=== PATIENT | female | born 1975 | race Caucasian/White ===

== ENCOUNTER 2017-03-29 00:09 | Emergency (ER) | payer OTHER ==
[2017-03-29] MEDS ORDERED: HYDROmorphone HCL 1 MG/ML SYR ONE ×2 (00:33→01:05)
[2017-03-29] MEDS ORDERED: ONDANSETRON HCL 4 MG/2 ML VIAL ONE (00:34)
[2017-03-29] MEDS ORDERED: LACTATED RINGERS 1,000 ML IV ONE (00:48)
[2017-03-29 01:02] LABS: BASOPHIL# 0.1 X 10^3uL (0.0-0.1); BASOPHILS 0.8 % (0.0-2.0); EOSINOPHILS 1.9 % (0.0-6.0); EOSINOPHILS# 0.1 X 10^3uL (0.0-0.4); HEMATOCRIT 38.9 % (36.0-48.0); HEMOGLOBIN 13.4 g/dL (12.0-16.0); LYMPHOCYTES 53.6 % (20.0-40.0); MEAN CELL VOLUME 86.3 fL (80.0-100.0); MEAN CORPUS. HGB CONCENTRATION 34.4 g/dL (32.0-36.0); MEAN CORPUSCULAR HEMOGLOBIN 29.7 pg (29.0-35.0); MEAN PLATELET VOLUME 8.2 fL (7.4-10.4); MONOCYTES 8.7 % (2.0-10.0); MONOCYTES# 0.7 X 10^3uL (0.2-1.0); NEUTROPHILS# 2.8 X 10^3uL (2.6-6.7); PLATELET COUNT 253 X 10^3uL (130-440); RED BLOOD COUNT 4.51 X 10^6uL (4.20-6.10); RED CELL DISTRIBUTION WIDTH 12.7 % (11.5-14.5); WHITE BLOOD COUNT 7.9 X 10^3uL (3.9-10.7)
[2017-03-29 01:04] LABS: LYMPHOCYTES# 4.2 X 10^3uL (0.8-3.8)
[2017-03-29 01:05] LABS: BLOOD UREA NITROGEN 9 mg/dL (7-17); CALCIUM 9.2 mg/dL (8.4-10.2); CHLORIDE 99 mmol/L (98-107); CREATININE 0.7 mg/dL (0.5-1.0); EST GLOMERULAR FILTRATION RATE > 60 mL/min; ETHYL ALCOHOL 207 mg/dL (<10); GLUCOSE 95 mg/dL (70-100); POTASSIUM 3.9 mmol/L (3.5-5.1); SODIUM 140 mmol/L (137-145)
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
== END 2017-03-29 01:38 | disposition short-term general hospital (02) ==
LOC: ER 00:09 → EEVIPCON 00:09 → ER 01:38
DX: T21.34XA Burn of third degree of lower back, initial encounter (principal); T21.35XA Burn of third degree of buttock, initial encounter; T31.0 Burns involving less than 10% of body surface; X03.0XXA Exposure to flames in controlled fire, not in building or structure, initial encounter; Y92.833 Campsite as the place of occurrence of the external cause; F10.129 Alcohol abuse with intoxication, unspecified; Z99.89 Dependence on other enabling machines and devices; Z74.3 Need for continuous supervision; Z79.899 Other long term (current) drug therapy
CPT/HCPCS: 80048; 80320; 85025; 96361; 96374; 96375; 99285; A0425; A0426; J1170; J2405; J7120